=== PATIENT | male | born 1990 | race Caucasian/White ===

== ENCOUNTER 2021-01-18 19:54 | Inpatient (IN) ==
[2021-01-18] MEDS ORDERED: *HR* FentaNYL (PF) 100 MCG/2 ML VIAL IVP ONE (20:50)
[2021-01-18] MEDS ORDERED: Ondansetron 4 MG/2 ML VIAL IVP ONE (20:50)
[2021-01-18] MEDS ORDERED: 0.9 % Sodium Chloride 1,000 ML IVC ONE ×2 (20:50→21:30)
[2021-01-18 21:09] LABS: VBG HCO3 26 mEq/L (21-27); VBG PCO2 43 mmHg (41-51); VBG PH 7.39 pH Units (7.32-7.42); VBG PO2 66 mmHg (25-50)
[2021-01-18 21:10] LABS: Basophils % 0.3 %; Hematocrit 47.1 % (37.5-50.1); Immature Granulocytes % 0.4 % (0-4); Lymphocytes # 0.6 K/mcL (0.6-4.6); Lymphocytes % 5.8 %; Mean Corpuscular Hemoglobin 33.8 pg (28.0-33.3); Mean Corpuscular Volume 99.4 fL (83.0-100.0); Mean Platelet Volume 10.7 fL (9.4-12.4); Neutrophils # 8.4 K/mcL (1.6-8.9); Platelet Count 211 K/mcL (140-400); Red Blood Count 4.74 M/mcL (4.19-5.50); Red Cell Distribution Width 13.2 % (11.5-14.5); Segmented Neutrophils % 83.5 %
[2021-01-18 21:29] LABS: Beta-Hydroxybutyric Acid 0.21 mmol/L (0.02-0.27)
[2021-01-18 21:31] LABS: BUN/Creatinine Ratio 16 (6-26); Blood Urea Nitrogen 10 mg/dL (6-20); Calcium 8.7 mg/dL (8.6-10.3); Carbon Dioxide 22 mEq/L (23-29); Chloride 98 mEq/L (98-107); Glucose 188 mg/dL (70-105); Magnesium 2.4 mg/dL (1.6-2.6); Osmolality,Calculated 286 (280-300); Phosphorous 3.7 mg/dL (2.7-4.5); Salicylate < 2.5 mg/dL (15.0-30.0); Sodium 136 mEq/L (136-145); eGFR For African Americans > 60 (> 60); eGFR For Non-African Americans > 60 (> 60)
[2021-01-18 21:32] LABS: Troponin I < 0.03 ng/mL (< 0.04)
[2021-01-18 22:10] LABS: Procalcitonin 0.15 ng/mL (0.00-0.15)
[2021-01-18 22:15] LABS: Lipase > 1800 Units/L (11-82)
[2021-01-18] MEDS ORDERED: *HR* OxyCODONE/APAP 5/325 TABLET PO ONE (23:31)
[2021-01-18 23:48] LABS: Alanine Aminotransferase 112 Units/L (7-52); Albumin 4.2 g/dL (3.5-5.7); Albumin/Globulin Ratio 1.4 (1.1-2.2); Alkaline Phosphatase 96 Units/L (34-104); Aspartate Amino Transferase 149 Units/L (13-39); Bilirubin,Direct 0.2 mg/dL (0.0-0.2); Bilirubin,Indirect 0.4 mg/dL (0.0-1.0); Bilirubin,Total 0.6 mg/dL (0.3-1.0); Total Protein 7.2 g/dL (6.4-8.9); Triglycerides 75 mg/dL (< 150)
[2021-01-19] MEDS ORDERED: *HR* LORazepam 2 MG/ML VIAL IVP ONE ×2 (00:10→00:28)
[2021-01-19] MEDS ORDERED: Ondansetron 4 MG/2 ML VIAL IVP ONE (00:20)
[2021-01-19] MEDS ORDERED: *HR* LORazepam 2 MG/ML VIAL IVP PRN ×2 (00:32→03:10)
[2021-01-19] MEDS ORDERED: Morphine Sulfate 2 MG/ML SYRINGE IVP STA (00:33)
[2021-01-19] MEDS ORDERED: Vitamin B Complex/Vit C/Vit E 1 EACH TABLET PO SCH (00:45)
[2021-01-19] MEDS: Thiamine (B-1) 100 MG TABLET PO SCH ×2 (01:25→08:46)
[2021-01-19] MEDS: Folic Acid 1 MG TABLET PO SCH ×2 (01:25→08:45)
[2021-01-19] MEDS ORDERED: *HR* HYDROcodone/Acet 5/325 mg TABLET PO PRN (01:57)
[2021-01-19] MEDS ORDERED: Ondansetron 4 MG/2 ML VIAL IVP PRN (01:57)
[2021-01-19] MEDS ORDERED: Naloxone 0.4 MG/ML INJ IVP PRN (01:57)
[2021-01-19] MEDS ORDERED: Acetaminophen 325 MG TABLET PO PRN (01:57)
[2021-01-19] MEDS ORDERED: 0.9 % Sodium Chloride 1,000 ML IVC SCH ×2 (02:00→15:30)
[2021-01-19] MEDS ORDERED: 0.9 % Sodium Chloride 1,000 ML IVC ONE (02:06)
[2021-01-19] MEDS ORDERED: Dextrose Gel 15 GM/37.5 ML TUBE PO PRN ×2 (02:36)
[2021-01-19] MEDS ORDERED: *HR* Dextrose 50 % in Water (Vial) 50 ML VIAL IVP PRN (02:36)
[2021-01-19] MEDS ORDERED: D5% in Water 1,000 ML IVC PRN (02:36)
[2021-01-19] MEDS: *HR* LORazepam 2 MG/ML VIAL IVP PRN ×2 (02:47→23:38)
[2021-01-19] MEDS: Ringers Solution, Lactated 1,000 ML IVC SCH ×5 (03:56→22:59)
[2021-01-19] MEDS: Insulin DETEMIR 100 UNIT/ML X5UNITS SUBQ SCH ×2 (03:57→21:11)
[2021-01-19] MEDS: *HR* OxyCODONE Immed Rel 5 MG TABLET PO PRN ×2 (04:01→18:38)
[2021-01-19 04:56] LABS: Basophils % 0.1 %; Eosinophils % 0.1 %; Hemoglobin 13.4 g/dL (12.9-16.9); Immature Granulocytes % 0.4 % (0-4); Lymphocytes # 0.7 K/mcL (0.6-4.6); Lymphocytes % 8.6 %; Mean Corpuscular HGB Conc 33.5 g/dL (31.6-35.5); Mean Corpuscular Hemoglobin 33.7 pg (28.0-33.3); Mean Corpuscular Volume 100.5 fL (83.0-100.0); Mean Platelet Volume 10.3 fL (9.4-12.4); Monocytes # 0.8 K/mcL (0.0-1.3); Neutrophils # 6.1 K/mcL (1.6-8.9); Platelet Count 171 K/mcL (140-400); Red Blood Count 3.98 M/mcL (4.19-5.50); Red Cell Distribution Width 13.5 % (11.5-14.5); Segmented Neutrophils % 80.8 %; White Blood Count 7.6 K/mcL (4.3-11.1)
[2021-01-19 05:38] LABS: BUN/Creatinine Ratio 14 (6-26); Blood Urea Nitrogen 8 mg/dL (6-20); Calcium 7.4 mg/dL (8.6-10.3); Carbon Dioxide 24 mEq/L (23-29); Chloride 105 mEq/L (98-107); Glucose 145 mg/dL (70-105); Lipase 1693 Units/L (11-82); Osmolality,Calculated 287 (280-300); Sodium 138 mEq/L (136-145); eGFR For African Americans > 60 (> 60); eGFR For Non-African Americans > 60 (> 60)
[2021-01-19] MEDS: Insulin LISPRO 300 UNITS/3 ML VIAL SUBQ SCH ×5 (07:45→17:06)
[2021-01-19] MEDS: Vitamin B Complex/Vit C/Vit E 1 EACH TABLET PO SCH (08:45)
[2021-01-19] MEDS ORDERED: Thiamine (B-1) 100 MG TABLET PO SCH (09:00)
[2021-01-19] MEDS ORDERED: Folic Acid 1 MG TABLET PO SCH (09:00)
[2021-01-19 09:07] LABS: Estimated Average Glucose 169 mg/dl; Hemoglobin A1C 7.5 %
[2021-01-19 11:02] LABS: Bilirubin,Urine Negative (Negative); Blood,Urine Negative (Negative); Clarity,Urine Clear (Clear); Color,Urine Light-Yellow (Yellow); Glucose,Urine (UA) >=1000 mg/dL (Normal); Ketones,Urine 40 mg/dL (Negative); Leukocyte Esterase,Urine Negative (Negative); Nitrite,Urine Negative (Negative); Protein,Urine Negative (Neg-Trace); RBC,Urine 0-3 per hpf (0-3); Specific Gravity,Urine 1.028 (1.010-1.025); Urobilinogen,Urine Normal (Normal); WBC,Urine 0-3 per hpf (0-3)
[2021-01-19] MEDS: Pantoprazole 40 MG VIAL IVP SCH (11:33)
[2021-01-19 11:47] LABS: Amphetamine Screen,Urine Negative ng/mL (Cutoff=1000); Barbiturate Screen,Urine Negative ng/mL (Cutoff=200); Benzodiazepines Screen,Urine Negative ng/mL (Cutoff=200); Cannabinoid Screen,Urine Negative ng/mL (Cutoff = 50); Cocaine Screen,Urine Negative ng/mL (Cutoff= 300); Opiate Screen,Urine Positive ng/mL (Cutoff=300); Phencyclidine Screen,Urine Negative ng/mL (Cutoff=25)
[2021-01-19 12:05] LABS: Albumin 3.5 g/dL (3.5-5.7); Albumin/Globulin Ratio 1.4 (1.1-2.2); Bilirubin,Direct 0.3 mg/dL (0.0-0.2); Bilirubin,Indirect 0.7 mg/dL (0.0-1.0); Globulin 2.5 g/dL (2.4-3.5)
[2021-01-19] MEDS ORDERED: hydrOXYzine pamoate 25 MG CAPSULE PO PRN (15:42)
[2021-01-19] MEDS: *HR* Heparin 5,000 UNIT/ML VIAL SQ SCH (17:12)
[2021-01-20 02:29] LABS: Hematocrit 45.4 % (37.5-50.1); Hemoglobin 14.9 g/dL (12.9-16.9); Mean Corpuscular HGB Conc 32.8 g/dL (31.6-35.5); Mean Corpuscular Hemoglobin 33.3 pg (28.0-33.3); Mean Corpuscular Volume 101.3 fL (83.0-100.0); Mean Platelet Volume 10.4 fL (9.4-12.4); Platelet Count 147 K/mcL (140-400); Red Blood Count 4.48 M/mcL (4.19-5.50); White Blood Count 8.1 K/mcL (4.3-11.1)
[2021-01-20 02:51] LABS: Alanine Aminotransferase 59 Units/L (7-52); Albumin 3.6 g/dL (3.5-5.7); Albumin/Globulin Ratio 1.3 (1.1-2.2); Alkaline Phosphatase 82 Units/L (34-104); Aspartate Amino Transferase 48 Units/L (13-39); BUN/Creatinine Ratio 10 (6-26); Blood Urea Nitrogen 6 mg/dL (6-20); Calcium 8.8 mg/dL (8.6-10.3); Carbon Dioxide 29 mEq/L (23-29); Chloride 94 mEq/L (98-107); Globulin 2.8 g/dL (2.4-3.5); Glucose 131 mg/dL (70-105); Osmolality,Calculated 271 (280-300); Potassium 4.1 mEq/L (3.5-5.1); Sodium 131 mEq/L (136-145); Total Protein 6.4 g/dL (6.4-8.9); eGFR For African Americans > 60 (> 60); eGFR For Non-African Americans > 60 (> 60)
[2021-01-20] MEDS: *HR* Heparin 5,000 UNIT/ML VIAL SQ SCH (05:07)
[2021-01-20] MEDS: Ringers Solution, Lactated 1,000 ML IVC SCH (05:10)
[2021-01-20 06:58] VITALS: BP 124/75
[2021-01-20] MEDS: Thiamine (B-1) 100 MG TABLET PO SCH (08:24)
[2021-01-20] MEDS: Vitamin B Complex/Vit C/Vit E 1 EACH TABLET PO SCH (08:24)
[2021-01-20] MEDS: Pantoprazole 40 MG VIAL IVP SCH (08:24)
[2021-01-20] MEDS: Insulin LISPRO 300 UNITS/3 ML VIAL SUBQ SCH (08:25)
[2021-01-20] MEDS: Folic Acid 1 MG TABLET PO SCH (08:25)
== END 2021-01-20 12:10 | disposition home or self-care (01) | DRG 282 ==
LOC: EMEROOARM 19:54 → 3ANU 19:54 → SUATTDRO 01-19 13:47
PROVIDERS: ADMIT Family Medicine; ATTEND Internal Medicine

== ENCOUNTER 2022-06-04 10:13 | Inpatient (IN) ==
[2022-06-04] MEDS ORDERED: *HR* LORazepam 2 MG/ML VIAL IVP ONE (11:06)
[2022-06-04] MEDS ORDERED: *HR* FentaNYL (PF) 100 MCG/2 ML VIAL IVP ONE (11:07)
[2022-06-04] MEDS ORDERED: Ondansetron 4 MG/2 ML VIAL IVP ONE (11:07)
[2022-06-04] MEDS ORDERED: 0.9 % Sodium Chloride 1,000 ML IV ONE ×2 (11:08→12:46)
[2022-06-04] MEDS ORDERED: Iopamidol - 370 500 ML MLS IVP ONE (11:12)
[2022-06-04 11:38] LABS: Troponin I < 0.03 ng/mL (< 0.04)
[2022-06-04] MEDS ORDERED: *HR* HYDROmorphone (PF) 1 MG/ML SYRINGE IVP ONE ×2 (11:55→12:48)
[2022-06-04 12:08] LABS: Basophils # 0.1 K/mcL (0.0-0.2); Basophils % 0.4 %; Eosinophils % 0.1 %; Hematocrit 47.9 % (37.5-50.1); Hemoglobin 15.3 g/dL (12.9-16.9); Immature Granulocytes % 0.8 % (0-4); Lymphocytes # 1.9 K/mcL (0.6-4.6); Lymphocytes % 9.8 %; Mean Corpuscular HGB Conc 31.9 g/dL (31.6-35.5); Mean Corpuscular Hemoglobin 31.4 pg (28.0-33.3); Mean Corpuscular Volume 98.4 fL (83.0-100.0); Mean Platelet Volume 11.3 fL (9.4-12.4); Monocytes # 2.1 K/mcL (0.0-1.3); Neutrophils # 14.9 K/mcL (1.6-8.9); Platelet Count 495 K/mcL (140-400); Red Blood Count 4.87 M/mcL (4.19-5.50); Red Cell Distribution Width 12.8 % (11.5-14.5); Segmented Neutrophils % 77.9 %; White Blood Count 19.1 K/mcL (4.3-11.1)
[2022-06-04 12:42] LABS: Alanine Aminotransferase 18 Units/L (7-52); Albumin 5.1 g/dL (3.5-5.7); Albumin/Globulin Ratio 1.5 (1.1-2.2); Alkaline Phosphatase 96 Units/L (34-104); Aspartate Amino Transferase 26 Units/L (13-39); BUN/Creatinine Ratio 18 (6-26); Bilirubin,Direct 0.1 mg/dL (0.0-0.2); Bilirubin,Indirect 0.3 mg/dL (0.0-1.0); Bilirubin,Total 0.4 mg/dL (0.3-1.0); Blood Urea Nitrogen 29 mg/dL (6-20); Calcium 9.2 mg/dL (8.6-10.3); Carbon Dioxide 7 mEq/L (23-29); Chloride 91 mEq/L (98-107); Globulin 3.4 g/dL (2.4-3.5); Glucose 394 mg/dL (70-105); Lipase 23 Units/L (11-82); Osmolality,Calculated 294 (280-300); Potassium 5.5 mEq/L (3.5-5.1); Sodium 131 mEq/L (136-145); Total Protein 8.5 g/dL (6.4-8.9); eGFR For African Americans > 60 (> 60); eGFR For Non-African Americans 51 (> 60)
[2022-06-04 13:37] LABS: VBG HCO3 8 mEq/L (21-27); VBG PCO2 28 mmHg (41-51); VBG PH 7.04 pH Units (7.32-7.42); VBG PO2 114 mmHg (25-50)
[2022-06-04] MEDS ORDERED: Naloxone 0.4 MG/ML INJ IVP PRN (14:40)
[2022-06-04] MEDS ORDERED: *HR* Dextrose 50 % in Water (Syg) 50 ML SYRINGE IVP PRN ×2 (14:53→20:08)
[2022-06-04] MEDS ORDERED: *HR* LORazepam 2 MG/ML VIAL IVP PRN ×3 (14:53)
[2022-06-04] MEDS ORDERED: D5% in 0.45% NACL 1,000 ML IVC PRN (14:57)
[2022-06-04] MEDS ORDERED: diazePAM 10 MG/2 ML SYRINGE IVP PRN (15:43)
[2022-06-04] MEDS ORDERED: Acetaminophen IV 1,000 MG/100 ML BAG IVPB PRN (15:52)
[2022-06-04] MEDS: Thiamine (B-1) 100 MG, Folic Acid 1 MG, MVI, adult with vitamin K 10 ML in 0.9 % Sodi... IVPB SCH (17:54)
[2022-06-04 17:57] LABS: BUN/Creatinine Ratio 19 (6-26); Blood Urea Nitrogen 26 mg/dL (6-20); Calcium 7.5 mg/dL (8.6-10.3); Carbon Dioxide 9 mEq/L (23-29); Chloride 98 mEq/L (98-107); Glucose 206 mg/dL (70-105); Osmolality,Calculated 277 (280-300); Potassium 5.5 mEq/L (3.5-5.1); Sodium 128 mEq/L (136-145); eGFR For African Americans > 60 (> 60); eGFR For Non-African Americans > 60 (> 60)
[2022-06-04] MEDS ORDERED: Insulin Regular, Human 100 UNIT/ML IV PRN ×2 (18:24)
[2022-06-04 20:40] LABS: Bilirubin,Urine Negative (Negative); Blood,Urine Negative (Negative); Clarity,Urine Clear (Clear); Color,Urine Colorless (Yellow); Glucose,Urine (UA) 100 mg/dL (Normal); Ketones,Urine >150 mg/dL (Negative); Leukocyte Esterase,Urine Negative (Negative); Nitrite,Urine Negative (Negative); PH,Urine 5.5 pH Units (5.0-8.0); Protein,Urine Negative (Neg-Trace); Specific Gravity,Urine 1.011 (1.010-1.025); Urobilinogen,Urine Normal (Normal)
[2022-06-04 21:53] LABS: BUN/Creatinine Ratio 20 (6-26); Blood Urea Nitrogen 21 mg/dL (6-20); Calcium 7.7 mg/dL (8.6-10.3); Carbon Dioxide 16 mEq/L (23-29); Chloride 104 mEq/L (98-107); Glucose 137 mg/dL (70-105); Osmolality,Calculated 279 (280-300); Potassium 4.7 mEq/L (3.5-5.1); Sodium 132 mEq/L (136-145); eGFR For African Americans > 60 (> 60); eGFR For Non-African Americans > 60 (> 60)
[2022-06-04] MEDS: D5% in 0.45% NACL w KCl 20 MEQ/1,000 ML MLS IVC PRN (22:41)
[2022-06-05] MEDS ORDERED: Iopamidol - 370 500 ML MLS IVP ONE (00:21)
[2022-06-05 01:41] LABS: Basophils % 0.1 %; Eosinophils % 0.1 %; Hematocrit 36.5 % (37.5-50.1); Immature Granulocytes % 0.5 % (0-4); Lymphocytes # 1.1 K/mcL (0.6-4.6); Lymphocytes % 7.5 %; Mean Corpuscular HGB Conc 34.2 g/dL (31.6-35.5); Mean Corpuscular Hemoglobin 31.8 pg (28.0-33.3); Mean Corpuscular Volume 92.9 fL (83.0-100.0); Mean Platelet Volume 10.1 fL (9.4-12.4); Monocytes # 2.6 K/mcL (0.0-1.3); Monocytes % 17.3 %; Neutrophils # 11.1 K/mcL (1.6-8.9); Platelet Count 319 K/mcL (140-400); Red Blood Count 3.93 M/mcL (4.19-5.50); Red Cell Distribution Width 12.5 % (11.5-14.5); Segmented Neutrophils % 74.5 %; White Blood Count 14.9 K/mcL (4.3-11.1)
[2022-06-05 01:57] LABS: BUN/Creatinine Ratio 16 (6-26); Blood Urea Nitrogen 16 mg/dL (6-20); Calcium 7.5 mg/dL (8.6-10.3); Carbon Dioxide 20 mEq/L (23-29); Chloride 101 mEq/L (98-107); Glucose 101 mg/dL (70-105); Osmolality,Calculated 271 (280-300); Potassium 3.8 mEq/L (3.5-5.1); Sodium 130 mEq/L (136-145); eGFR For African Americans > 60 (> 60); eGFR For Non-African Americans > 60 (> 60)
[2022-06-05 02:00] LABS: Hemoglobin 12.5 g/dL (12.9-16.9)
[2022-06-05] MEDS ORDERED: D5% in Water 1,000 ML IVC PRN (02:30)
[2022-06-05] MEDS ORDERED: Dextrose Gel 15 GM/37.5 ML TUBE PO PRN ×2 (02:30)
[2022-06-05] MEDS ORDERED: Insulin DETEMIR 100 UNIT/ML X5UNITS SUBQ ONE (02:31)
[2022-06-05] MEDS: D5% in 0.45% NACL w KCl 20 MEQ/1,000 ML MLS IVC PRN (03:15)
[2022-06-05 05:33] LABS: BUN/Creatinine Ratio 12 (6-26); Blood Urea Nitrogen 12 mg/dL (6-20); Calcium 7.7 mg/dL (8.6-10.3); Carbon Dioxide 20 mEq/L (23-29); Chloride 103 mEq/L (98-107); Glucose 255 mg/dL (70-105); Osmolality,Calculated 278 (280-300); Potassium 3.8 mEq/L (3.5-5.1); Sodium 130 mEq/L (136-145); eGFR For African Americans > 60 (> 60); eGFR For Non-African Americans > 60 (> 60)
[2022-06-05] MEDS: 0.9 % Sodium Chloride 1,000 ML IVC SCH ×8 (06:28→21:17)
[2022-06-05 07:14] LABS: BUN/Creatinine Ratio 12 (6-26); Blood Urea Nitrogen 12 mg/dL (6-20); Calcium 7.8 mg/dL (8.6-10.3); Carbon Dioxide 20 mEq/L (23-29); Chloride 102 mEq/L (98-107); Glucose 200 mg/dL (70-105); Osmolality,Calculated 275 (280-300); Potassium 4.4 mEq/L (3.5-5.1); Sodium 130 mEq/L (136-145); eGFR For African Americans > 60 (> 60); eGFR For Non-African Americans > 60 (> 60)
[2022-06-05] MEDS: Insulin LISPRO 300 UNITS/3 ML VIAL SUBQ SCH ×3 (09:41→17:36)
[2022-06-05 11:44] LABS: BUN/Creatinine Ratio 11 (6-26); Blood Urea Nitrogen 11 mg/dL (6-20); Calcium 8.2 mg/dL (8.6-10.3); Carbon Dioxide 22 mEq/L (23-29); Chloride 104 mEq/L (98-107); Glucose 172 mg/dL (70-105); Osmolality,Calculated 277 (280-300); Sodium 132 mEq/L (136-145); eGFR For African Americans > 60 (> 60); eGFR For Non-African Americans > 60 (> 60)
[2022-06-05] MEDS: *HR* Heparin 5,000 UNIT/ML VIAL SQ SCH ×2 (13:41→21:13)
[2022-06-05] MEDS: Pantoprazole 40 MG VIAL IVP SCH (17:35)
[2022-06-05] MEDS: Thiamine (B-1) 100 MG, Folic Acid 1 MG, MVI, adult with vitamin K 10 ML in 0.9 % Sodi... IVPB SCH (18:09)
[2022-06-05] MEDS ORDERED: Ondansetron ODT 4 MG TAB.RAPDIS SL PRN (18:10)
[2022-06-05] MEDS: Acetaminophen 325 MG TABLET PO PRN (18:10)
[2022-06-05] MEDS ORDERED: Melatonin 3 MG TABLET PO PRN (18:10)
[2022-06-05] MEDS ORDERED: Insulin DETEMIR 100 UNIT/ML X5UNITS SUBQ SCH (21:00)
[2022-06-05] MEDS ORDERED: Insulin LISPRO 300 UNITS/3 ML VIAL SUBQ SCH (21:00)
[2022-06-06] MEDS: 0.9 % Sodium Chloride 1,000 ML IVC SCH (01:48)
[2022-06-06 04:11] LABS: Basophils % 0.3 %; Eosinophils % 0.3 %; Hematocrit 39.2 % (37.5-50.1); Hemoglobin 13.2 g/dL (12.9-16.9); Immature Granulocytes % 0.6 % (0-4); Lymphocytes # 1.7 K/mcL (0.6-4.6); Lymphocytes % 15.6 %; Mean Corpuscular HGB Conc 33.7 g/dL (31.6-35.5); Mean Corpuscular Hemoglobin 31.5 pg (28.0-33.3); Mean Corpuscular Volume 93.6 fL (83.0-100.0); Mean Platelet Volume 10.3 fL (9.4-12.4); Monocytes % 9.1 %; Neutrophils # 8.2 K/mcL (1.6-8.9); Platelet Count 306 K/mcL (140-400); Red Blood Count 4.19 M/mcL (4.19-5.50); Red Cell Distribution Width 13.2 % (11.5-14.5); Segmented Neutrophils % 74.1 %
[2022-06-06 04:29] LABS: BUN/Creatinine Ratio 10 (6-26); Blood Urea Nitrogen 8 mg/dL (6-20); Calcium 8.5 mg/dL (8.6-10.3); Carbon Dioxide 27 mEq/L (23-29); Chloride 101 mEq/L (98-107); Glucose 64 mg/dL (70-105); Osmolality,Calculated 280 (280-300); Potassium 3.7 mEq/L (3.5-5.1); Sodium 137 mEq/L (136-145); eGFR For African Americans > 60 (> 60); eGFR For Non-African Americans > 60 (> 60)
[2022-06-06] MEDS: *HR* Heparin 5,000 UNIT/ML VIAL SQ SCH (05:28)
[2022-06-06 06:48] VITALS: TEMP 98.4
[2022-06-06] MEDS: Insulin LISPRO 300 UNITS/3 ML VIAL SUBQ SCH ×2 (08:51→11:49)
[2022-06-06] MEDS: Pantoprazole 40 MG VIAL IVP SCH (08:52)
[2022-06-06] MEDS: Acetaminophen 325 MG TABLET PO PRN (09:01)
[2022-06-06 09:09] VITALS: BP 136/93; PULSE 96; O2SAT 98
== END 2022-06-06 15:01 | disposition home or self-care (01) | DRG 420 ==
LOC: EMEROOARM 10:13 → 2NNU 10:13
PROVIDERS: ADMIT Internal Medicine; ATTEND Internal Medicine